=== PATIENT | female | born 1960 | race American Indian/Alaskan Native ===

== ENCOUNTER 2016-03-17 10:10 | Emergency (ER) | payer OTHER ==
[2016-03-17 10:37] LABS: Basophils % (Auto) 1.2 % (0.0-1.8); Eosinophils % (Auto) 2.3 % (0.0-4.3); Hematocrit 38.5 % (30.3-42.9); Mean Corpuscular HGB Conc 34 % (30-34); Mean Corpuscular Hemoglobin 30 pg (28-32); Mean Corpuscular Volume 90 fl (79-97); Platelet Count 242 K/mm3 (140-440); Red Blood Count 4.28 M/mm3 (3.65-5.03); Red Cell Distribution Width 14.5 % (13.2-15.2); White Blood Count 5.9 K/mm3 (4.5-11.0)
[2016-03-17 10:55] LABS: Anion Gap 18 mmol/L; BUN/Creatinine Ratio 13.33; Blood Urea Nitrogen 12 mg/dL (7-17); Calcium 9.1 mg/dL (8.4-10.2); Carbon Dioxide 25 mmol/L (22-30); Chloride 99.4 mmol/L (98-107); Glucose 114 mg/dL (65-100); Potassium 4.2 mmol/L (3.6-5.0); Sodium 138 mmol/L (137-145)
[2016-03-17] MEDS ORDERED: SUBLIMAZE IV ONE (10:58)
[2016-03-17 11:45] VITALS: BP 171/82
[2016-03-17] MEDS ORDERED: TYLENOL #3 PO ONE (11:53)
--- NOTE | 2016-03-17 11:57 | XRay Report ---
PORTABLE CHEST INDICATION: Chest pain. COMPARISON: 07/18/2012 FINDINGS: Portable, frontal chest radiograph suggests mild cardiomegaly and slightly elevated right hemidiaphragm. Limited left retrocardiac penetration, though without definite large pleural effusions or CHF. Stable bones. CONCLUSION: Mild cardiomegaly without acute chest process, as described. Thank you for the opportunity to participate in this patient's care.
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
== END 2016-03-17 12:07 | disposition home or self-care (01) ==
LOC: ED 10:10
DX: R07.89 Other chest pain (principal); M54.2 Cervicalgia; Z79.1 Long term (current) use of non-steroidal anti-inflammatories (NSAID); Z88.0 Allergy status to penicillin; Y92.488 Other paved roadways as the place of occurrence of the external cause; V49.9XXA Car occupant (driver) (passenger) injured in unspecified traffic accident, initial encounter; Y93.89 Activity, other specified; Y99.8 Other external cause status
CPT/HCPCS: 36415; 71010; 80048; 84484; 85025; 93005; 93010

== ENCOUNTER 2017-08-28 09:28 | Emergency (ER) | payer OTHER ==
[2017-08-28] MEDS ORDERED: MOTRIN PO ONE (10:31)
--- NOTE | 2017-08-28 10:31 | Emergency Department Report ---
Abscess Boil HPI - HPI Chief Complaint: Skin/Abscess/Foreign Body Stated Complaint: PAIN IN LEFT BREAST Time Seen by Provider: 08/28/17 10:07 Duration: 1 Week Location: Chest (left breast) Severity: Moderate (6/10) History: Yes Pain (6/stent to left breast), Yes Previous History, No Fever, No Purulent Drainage, No Numbness, No Foreign Body, No Insect Bite HPI: This is a 57-year-old female here reports that she has sore under her left breast that is hot to touch. She reports redness without any drainage. Denies any insect bite. She has had similar incident in the past on other parts of her body. She said this is going on for a week and it's getting worse. Denies being diabetic. Pain is 6/10 and sore. Worse with touch and movement and no alleviating factor. She denies taking any medication for pain and reports that her tetanus vaccine is up-to-date. Home Medications: Previous Rx's Medication Instructions Recorded Last Taken Type Acetaminophen/Codeine [Tylenol #3] 1 tab PO Q6H PRN #12 tab 03/17/16 Unknown Rx Clindamycin [Clindamycin CAP] 300 mg PO Q8H 10 Days #30 cap 08/28/17 Unknown Rx Ibuprofen [Motrin 800 MG tab] 800 mg PO Q8HR PRN #12 tablet 08/28/17 Unknown Rx Allergies/Adverse Reactions: Allergies Allergy/AdvReac Type Severity Reaction Status Date / Time levofloxacin [From Levaquin] Allergy Unknown Verified 08/28/17 09:42 Penicillins AdvReac Seizure Unverified 03/28/15 11:04 ED Review of Systems ROS: Stated complaint: PAIN IN LEFT BREAST Other details as noted in HPI Constitutional: denies: chills, fever Eyes: denies: eye pain, eye discharge, vision change ENT: denies: ear pain, throat pain Respiratory: see HPI. denies: cough, shortness of breath, SOB with exertion, wheezing Cardiovascular: denies: chest pain, palpitations, edema, syncope Gastrointestinal: denies: abdominal pain, nausea, vomiting, diarrhea Genitourinary: other (breasts pain or redness). denies: urgency, dysuria, discharge Musculoskeletal: denies: back pain, joint swelling, arthralgia, myalgia Skin: other (left breast redness, swelling and painful movement and touch.). denies: rash, lesions Neurological: denies: headache, weakness, paresthesias Psychiatric: denies: anxiety, depression Hematological/Lymphatic: denies: easy bleeding, easy bruising ED Past Medical Hx - Past Medical History Previous Medical History?: Yes Hx Hypertension: Yes Additional medical history: Cardiac stent - Surgical History Past Surgical History?: Yes Additional Surgical History: "leg surgery". tubal ligation - Family History Family history: cancer, hypertension - Social History Smoking Status: Never Smoker Substance Use Type: None - Medications Home Medications: Home Medications Medication Instructions Recorded Confirmed Last Taken Type Acetaminophen/Codeine [Tylenol #3] 1 tab PO Q6H PRN #12 tab 03/17/16 Unknown Rx Clindamycin [Clindamycin CAP] 300 mg PO Q8H 10 Days #30 cap 08/28/17 Unknown Rx Ibuprofen [Motrin 800 MG tab] 800 mg PO Q8HR PRN #12 tablet 08/28/17 Unknown Rx ED Abscess Boil Physical Exam - Exam General: Vital signs noted. No distress. Alert and acting appropriately. This is a 57-year-old female well-nourished well-developed in no acute distress. Front/Back of Body, Lg (Color): 1 - 3 x 2 cm, we'll to left breast. This is outside of area on the posterior left breast. Tender to palpate. Positive induration without any fluctuance. No drainage noted noted some scaling around skin. No nipple discharge or dimpling of skin. Size: 3 cm Exam: Yes Tenderness (posterior, left breast), Yes Surrounding Cellulites/ Erythema (3 cm), Yes Normal Neurologic Exam (alert and oriented 3, normal gait and GCS of 15.), Yes Normal Circulation (+2 pulses, no neurovascular compromise and no clubbing, cyanosis or edema.), No Fluctuance (positive induration), No Lymphangitis, No Crepitation, No Heart Murmur (S1, S2) Exam: Breast exam: No chest deformity, asymmetry. Normal contours. 3 x 2 cm indurated, nonfluctuant, tenderness to posterior left breast. No axillary adenopathy. No nipple discharge . Left breast tenderness, dominant mass scaling around indurated area to thhe left breast located posterriorly without any fluctuance. I & D Note - I & D Note I & D Note: Unable to incision and drain abscess due to induration without any fluctuance. Patient is up-to-date on her tetanus shot. I instructed her to apply warm compresses to affected area 3 times a day to facilitate softening drainage of abscess and she voiced understanding. ED Course Vital Signs 08/28/17 09:35 Temperature 98.9 F Pulse Rate 85 Respiratory 18 Rate Blood Pressure 197/94 O2 Sat by Pulse 98 Oximetry - Reevaluation(s) Reevaluation #1: 08/28/17 11:52 Given clindamycin 600 mg by mouth in emergency room and Motrin 800 mg by mouth for pain. She has no adverse reaction from medication Critical care attestation.: If time is entered above; I have spent that time in minutes in the direct care of this critically ill patient, excluding procedure time. ED Medical Decision Making - Medical Decision Making ED course This is a 57-year-old female presented to the emergency room complaining of one- week of breast redness, pain and boil. She's had similar incident in the past but not to her breast. She has several family members with breast cancer to include her mom, 2 sister and an maternal side. She is here to be evaluated. Last mammogram was 2 years ago and she does have a primary care physician who is Dr. Rivera Patient was examined by myself and found to have 3 x 2 cm indurated, we'll with some scaling to the posterior left breast. Breasts exam then please refer to exam note for details. Unable to incision and drainage area due to induration without any fluctuance. Patient instructed to place warm compresses to affected area 3-4 times a day to facilitate drainage. She was given clindamycin 600 milligram by mouth in emergency room for cellulitis and abscess and Motrin 800 mg by mouth for pain. She had no reaction for medications. Patient educated on diagnosis, treatment plan, medication and mammogram and she voiced understanding. Patient with abscess and cellulitis left breast-instructed to follow-up with her primary care physician for outpatient mammogram to rule out malignancy, started on clindamycin Left breast pain-better with Motrin and will send home and Motrin. Patient referred to her primary care physician to follow up on Thursday and to call today to get appointment to schedule outpatient mammogram Prescription for clindamycin as she is allergic to penicillin and also Motrin. Educated on T1. She voiced understanding. Pt discharged home in stable condition with prescription for Motrin and clindamycin. Vital signs stable and she is afebrile. Pain is controlled. Discharged home to follow up with her primary care in 3 days and she voiced understanding. She is also given information on mammogram. - Differential Diagnosis breast malignancy, abscess, cellulitis, cysts ED Disposition Clinical Impression: Abscess of breast, left, Cellulitis of left breast, Breast pain, left, Breast mass in female Disposition: - TO HOME OR SELFCARE Is pt being admited?: No Does the pt Need Aspirin: No Condition: Stable Instructions: Abscess (ED), Cellulitis (ED), Breast Mass (ED), Mammogram (ED), Acute Wound Care (ED) Additional Instructions: Please see discharge instruction in acute wound care Apply warm compresses to affected area 4 times a day to facilitate then and increased drainage Keep affected area clean Motrin for pain and please take medication with food to prevent nausea or irritation to stomach lining A clindamycin for infection See discharge instruction on mammogram and called her primary care physician today to schedule an appointment for outpatient mammogram Return to the emergency room if, he developed fever, chills, increased pain and drainage from site, nausea and vomited, increase in redness and/or weakness. Prescriptions: Clindamycin [Clindamycin CAP] 300 mg PO Q8H 10 Days #30 cap Ibuprofen [Motrin 800 MG tab] 800 mg PO Q8HR PRN #12 tablet PRN Reason: Pain Referrals: ORTIZ RIVERA MD [Staff Physician] - 08/31/17 PRIMARY CARE, [Primary Care Provider] - 08/31/17 Forms: Work/School Release Form(ED)
[2017-08-28] MEDS ORDERED: CLEOCIN PO ONE (10:32)
[2017-08-28 12:13] VITALS: BP 146/74
== END 2017-08-28 12:11 | disposition home or self-care (01) ==
LOC: ED 09:28
DX: N61.1 Abscess of the breast and nipple (principal); N61.0 Mastitis without abscess; N63.0 Unspecified lump in unspecified breast; I10 Essential (primary) hypertension; Z88.1 Allergy status to other antibiotic agents; Z88.0 Allergy status to penicillin
CPT/HCPCS: 99282

== ENCOUNTER 2018-03-18 11:36 | Outpatient (CLI) | payer OTHER ==
--- NOTE | 2018-03-19 08:10 | Mammography Report ---
BILATERAL DIGITAL SCREENING MAMMOGRAM with CAD: 03/18/18 11:36:00 CLINICAL: Routine screening. COMPARISON:03/28/15 FINDINGS: The breasts are almost entirely fatty. No mass, architectural distortion or suspicious calcifications. IMPRESSION: No mammographic evidence of malignancy. BI-RADS CATEGORY: 1 - - Negative RECOMMENDATION: Routine mammographic screening in one year. COMMENT: Patient follow-up letters are generated by our [employer] application.
== END 2018-03-18 11:37 | disposition home or self-care (01) ==
LOC: MAMMO 11:36
PROVIDERS: ATTEND Internal Medicine
DX: Z12.31 Encounter for screening mammogram for malignant neoplasm of breast (principal); I10 Essential (primary) hypertension
CPT/HCPCS: 77067

== ENCOUNTER 2020-12-28 09:41 | Outpatient (CLI) | payer OTHER | END 2020-12-28 09:42 | disposition home or self-care (01) | LOC: MAMMO 09:41 | PROVIDERS: ATTEND Clinical Nurse Specialist Adult Health | DX: Z12.31 Encounter for screening mammogram for malignant neoplasm of breast (principal) | CPT/HCPCS: 77067 ==